=== PATIENT | male | born 1980 | race African-American/Black ===

== ENCOUNTER 2016-12-17 14:47 | Emergency (ER) | payer OTHER ==
[~2016-12-17] VITALS: Ht 172.7 cm; Wt 122.9 kg
--- NOTE | ~2016-12-17 | US67 ---
[facility] A Service of [facility] RADIOLOGY TEXT RESULTS PATIENT: RAHEL CAICEDO LOCATION: [facility] : 76 UNIT #: [id number] AGE: [address]: Lauren Haney MD SEX: M ORDER DR: [id number] [facility]. [place], [place] [address] [id number] MR#: [id number] Acc #: [id number] NAME: RAHEL CAICEDO : 1980 SEX: M STUDY DATE/TIME: 12/17/2016 15:59 UNIT: TEJAL ROOM: STUDY DESCRIPTION: US Gallbladder Attending Physician: Lauren Haney M.D. Ordering Physician: Lauren Haney M.D. Primary Care Physician: Soto Smiley M.D. MEDICAL IMAGING REPORT This report is preliminary unless electronic signature is present EXAM Gallbladder ultrasound, 12/17/2016 INDICATION Upper quadrant pain 3 days. 36-year-old male. TECHNIQUE Sonographic imaging of the right upper quadrant was performed. Correlation is made with CT chest 01/22/2016. FINDINGS Visualized pancreas unremarkable. Liver demonstrates a coarsened echotexture most characteristic of fatty infiltration or early cirrhosis. No focal liver mass, ascites or intrahepatic ductal dilatation. Liver measures 19.7 cm long axis. Right kidney nonobstructed and measures 11.7 cm long axis. The gallbladder is contracted. Gallbladder wall measures up to about 2 mm. No distinct evidence of cholelithiasis although sensitivity for detection of cholelithiasis is degraded by the contracted state of the gallbladder. No sonographic Ennis's sign was described. Extrahepatic common bile duct measures 3-4 mm. IMPRESSION 1. Contracted gallbladder but no evidence of cholelithiasis or ductal dilatation. 2. Imaging features most characteristic of fatty infiltration of the liver or early cirrhotic change. 3. The remainder of the examination is negative. Dictated by... [facility] A Service of [facility] RADIOLOGY TEXT RESULTS PATIENT: RAHEL CAICEDO LOCATION: [facility] : 76 UNIT #: [id number] AGE: [address]: Lauren Haney MD SEX: M ORDER DR: Raleigh High M.D. THIS IS AN ELECTRONICALLY VERIFIED REPORT Raleigh High M.D. at 12/18/2016 2:16 PM LINDSAY/catrachita TD: 12/18/2016 04:38 JOB #: [id number] MEDICAL IMAGING REPORT Page 1 of 1 COPY
[2016-12-17] MEDS ORDERED: COREG6.25 M1 PO (15:27)
[2016-12-17] MEDS ORDERED: LISINOPRIL20 MG PO (15:28)
[2016-12-17] MEDS ORDERED: HYDROCODON-ACE1 EAC5 PO (15:30)
[2016-12-17] MEDS ORDERED: NEURONTIN800 MG DOB (15:31)
[2016-12-17] MEDS ORDERED: FLEXERIL10 MG PO (15:31)
[2016-12-17 15:40] LABS: BASOPHIL% 0.8 % (0-2.5); EOSINOPHIL# 0.2 X10e3 (0-0.7); EOSINOPHIL% 2.8 % (0.0-7.0); HEMOGLOBIN 15.6 gm/dL (13.0-16.0); LYMPHOCYTE# 1.4 X10e3 (1.0-3.5); LYMPHOCYTE% 24.3 % (17.0-45.0); MEAN CELL VOLUME 93.7 FL (83-96); MEAN CORPUSCULAR HEMOGLOBIN 31.1 PG (28-34); MEAN CORPUSCULAR HGB CONC 33.2 g/dL (30-36); MEAN PLATELET VOLUME 7.8 FL (6.5-11.5); MONOCYTE# 0.8 X10e3 (0-1.0); MONOCYTE% 14.2 % (3.0-12.0); NEUTROPHIL# 3.4 X10e3 (1.5-7.1); NEUTROPHIL% 57.9 % (40-75); PLATELET COUNT 201 X10e3 (140-420); RED BLOOD COUNT 5.02 X10e (3.90-5.60); RED CELL DISTRIBUTION WIDTH 15.1 % (11.0-15.5); WHITE BLOOD COUNT 5.9 X10e3 (4.0-10.5)
[2016-12-17 15:44] LABS: DIFF IND NO
[2016-12-17 16:17] LABS: ALBUMIN SERUM 3.8 g/dL (3.5-5.0); BILIRUBIN, DIRECT 0.1 mg/dL (0.0-0.2); BILIRUBIN,INDIRECT 0.1 mg/dL (0.0-0.9); BILIRUBIN,TOTAL 0.2 mg/dL (0.2-2.0); BUN/CREATININE RATIO 7.69; CALCIUM SERUM 8.9 mg/dL (8.4-10.2); CREATININE SERUM 1.3 mg/dL (0.6-1.4); GLOM FILT RATE Estimated 80.3 mL/min (>60); POTASSIUM 3.7 mmol/L (3.5-5.1); PROTEIN TOTAL SERUM 7.3 g/dL (6.0-8.3)
== END 2016-12-17 17:10 | disposition home or self-care (01) ==
LOC: CED 14:47
PROVIDERS: Emergency Medicine
DX: R10.13 Epigastric pain (principal); R10.11 Right upper quadrant pain; Z79.899 Other long term (current) drug therapy; Z88.8 Allergy status to other drugs, medicaments and biological substances
CPT/HCPCS: 36415; 76705; 80048; 80076; 82150; 83690; 85025; 96361; 96374; 99284; J1885